=== PATIENT | male | born 1980 | race Caucasian/White ===

== ENCOUNTER 2019-05-18 22:27 | Observation (INO) | payer BC ==
[~2019-05-18] VITALS: Ht 185.4 cm; Wt 122.5 kg
[2019-05-18] MEDS ORDERED: GLUCAGON,HUMAN RECOMBINANT 1 MG/ML VIAL. IV ONE (23:30)
[2019-05-18] MEDS ORDERED: ONDANSETRON PF 4 MG/2 ML VIAL. IV ONE (23:30)
[2019-05-19] MEDS ORDERED: MORPHINE SULFATE 4 MG/ML VIAL. IV PRN (00:15)
--- NOTE | 2019-05-19 00:57 | PHYS DOC ---
Past Medical History Past Medical History: No Pertinent History Past Surgical History: Other Additional Past Surgical Histo: WISDOM TEETH Alcohol Use: Occasionally Drug Use: None Adult General Chief Complaint Chief Complaint: FOREIGN BODY HPI HPI Patient is a 39 year old male who ate beef brisket for lunch approximately 10 hours prior to arrival has had sensation of it being unable to pass CANT SWALLOW SALIVA no pain really. no abdo pian. has hx of gerd in the past. no other pmh no meds allergic to iodine Review of Systems Review of Systems Constitutional: Denies fever or chills [] Eyes: Denies change in visual acuity, redness, or eye pain [] HENT: Denies nasal congestion or sore throat [] Respiratory: Denies cough or shortness of breath [] Musculoskeletal: Denies back pain or joint pain [] Integument: Denies rash or skin lesions [] Neurologic: Denies headache, focal weakness or sensory changes [] Endocrine: Denies polyuria or polydipsia [] All other systems were reviewed and found to be within normal limits, except as documented in this note. Current Medications Current Medications Current Medications Medications (Trade) Dose Ordered Sig/Tommy Start Time Stop Time Status Last Admin Dose Admin Glucagon (Glucagen) 1 mg 1X ONCE 05/18/19 23:30 05/18/19 23:31 DC 05/18/19 23:28 1 MG Lorazepam (Ativan Inj) 1 mg 1X ONCE 05/18/19 23:30 05/18/19 23:31 DC 05/18/19 23:19 1 MG Morphine Sulfate (Morphine Sulfate) 4 mg PRN Q2HR PRN 05/19/19 00:15 05/20/19 00:14 Ondansetron HCl (Zofran) 4 mg 1X ONCE 05/18/19 23:30 05/18/19 23:31 DC 05/18/19 23:18 4 MG Sodium Chloride 1,000 ml @ 100 mls/hr Q10H 05/19/19 00:02 05/20/19 00:01 Allergies Allergies Allergies Coded Allergies Type Severity Reaction Last Updated Verified iodine Allergy Severe "I DONT KNOW THEY TOLD ME I DID WHEN I WAS LITTLE. " 05/18/19 Yes Physical Exam Physical Exam Constitutional: Well developed, well nourished, no acute distress, non-toxic ap pearance. [] HENT: Normocephalic, atraumatic, bilateral external ears normal, oropharynx moist, no oral exudates, nose normal. [] Eyes: PERRLA, EOMI, conjunctiva normal, no discharge. [] Neck: Normal range of motion, no tenderness, supple, no stridor. [] Pulmonary: Normal respiratory effort no increased work of breathing no obvious chest wall trauma Abdomen: Bowel sounds normal, soft, no tenderness, no masses, no pulsatile masses. [] Skin: Warm, dry, no erythema, no rash. [] Back: No tenderness, no CVA tenderness. [] Extremities: No tenderness, no cyanosis, no clubbing, ROM intact, no edema. [] Neurologic: Alert and oriented X 3, normal motor function, normal sensory function, no focal deficits noted. [] Psychologic: Affect normal, judgement normal, mood normal. [] Current Patient Data Vital Signs Vital Signs Date Time Temp Pulse Resp B/P (MAP) Pulse Ox O2 Delivery O2 Flow Rate FiO2 05/18/19 22:30 98.2 91 18 176/120 (138) 91 Room Air 98.2 EKG EKG [] Radiology/Procedures Radiology/Procedures [] Course & Med Decision Making Course & Med Decision Making Pertinent Labs and Imaging studies reviewed. (See chart for details) []In the ER we gave glucagon Ativan and Zofran, it didnt work I spoke with Dr. sal at 1230 am. given this has been going on since lunch, will admit first case for egd. [facility] Disclaimer Deann Disclaimer This electronic medical record was generated, in whole or in part, using a voice recognition dictation system. Departure Departure Impression: Primary Impression: Food impaction of esophagus Disposition: ADMITTED INPATIENT Admitting Physician: BRADEN Condition: STABLE Referrals: UNKNOWN PCP NAME (PCP) GUANACO MURCIA MD May 19, 2019 00:57
[2019-05-19 01:21] VITALS: BP 143/78
--- NOTE | 2019-05-19 01:41 | NUR ---
Patient admission Pt arrived to the unit at approximately 0120 via w/c from the ED. Pt's at bedside. Patient information guide packet was explained and given to pt. All questions and concerns regarding pt's POC was addressed and answered. Pt and verbalized understanding. Will continue to monitor pt closely.
[2019-05-19] MEDS ORDERED: No home medications (01:46)
[2019-05-19] MEDS: IV NORMAL SALINE 1000ML BAG 1,000 ML IV SCH ×2 (01:59→08:54)
[2019-05-19 03:00] VITALS: BP_SYST 126; BP_SYST 128; BP_DIAS 76; BP_DIAS 85
[2019-05-19] MEDS ORDERED: IV RINGERS,LACTATED 1000ML 1,000 ML IV SCH ×2 (07:21→07:45)
[2019-05-19] MEDS ORDERED: LIDOCAINE 2% PF 5 ML VIAL. ONE (07:30)
[2019-05-19] MEDS ORDERED: PROPOFOL 40 ML IV ONE (07:30)
--- NOTE | 2019-05-19 08:06 | PDOC2 ---
CONSULT Date of Consult Date of Consult DATE: 05/19/19 TIME: 07:58 Reason for Consult Reason for Consult: food impaction, history of dysphagia History of Present Illness Reason for Visit: 39 yo male with history for 1-2 years of intermittent solid food dysphagia, mostly with meats. In past, able to pass but yesterday, had meat for lunch- unable to pass- presented at midnight- did not respond to glucagon etc in ER and was admitted. He has history of heartburn for years but states when he stopped smoking, the heartburn seemed to go away. He does not take meds for heartburn regularly. He denies n/v, abd pain, change in bowels,fever, GI bleeding etc. During the night, noted to have intermittent low oxygen level- improved with O2. No history of sleep apnea but prior smoker Past Medical History GI: GERD Social History Quit Current Medications Current Medications Current Medications Glucagon (Glucagen) 1 mg 1X ONCE IV Last administered on 05/18/19at 23:28; Start 05/18/19 at 23:30; Stop 05/18/19 at 23:31; Status DC Lorazepam (Ativan Inj) 1 mg 1X ONCE IV Last administered on 05/18/19at 23:19; Start 05/18/19 at 23:30; Stop 05/18/19 at 23:31; Status DC Ondansetron HCl (Zofran) 4 mg 1X ONCE IV Last administered on 05/18/19at 23:18; Start 05/18/19 at 23:30; Stop 05/18/19 at 23:31; Status DC Morphine Sulfate (Morphine Sulfate) 4 mg PRN Q2HR PRN IV SEVERE PAIN 7-10; Start 05/19/19 at 00:15; Stop 05/20/19 at 00:14 Sodium Chloride 1,000 ml @ 100 mls/hr Q10H IV Last administered on 05/19/19at 01:59; Start 05/19/19 at 00:02; Stop 05/20/19 at 00:01 Ringer's Solution 1,000 ml @ 50 mls/hr Q20H IV Last administered on 05/19/19at 07:25; Start 05/19/19 at 07:21; Stop 05/19/19 at 19:20 Propofol 40 ml @ As Directed STK-MED ONCE IV ; Start 05/19/19 at 07:30; Stop 05/19/19 at 07:31; Status DC Lidocaine HCl (Lidocaine Pf 2% Vial) 5 ml STK-MED ONCE .ROUTE ; Start 05/19/19 at 07:30; Stop 05/19/19 at 07:31; Status DC Ringer's Solution 1,000 ml @ 100 mls/hr Q10H IV ; Start 05/19/19 at 07:45 Active Scripts Active Reported [No home medications] Allergies Allergies: Coded Allergies: iodine (Verified Allergy, Severe, "I DONT KNOW THEY TOLD ME I DID WHEN I WAS LITTLE. ", 05/18/19) ROS Gastrointestinal: Yes Other (dysphagia) Physical Exam General: Alert, Oriented X3 HEENT: Atraumatic, PERRLA Lungs: Clear to auscultation Heart: Regular rate, Normal S1, Normal S2, No murmurs Abdomen: Normal bowel sounds, Soft, No tenderness, No hepatosplenomegaly, No masses Extremities: No clubbing, No cyanosis Skin: No rashes Neuro: Normal gait Psych/Mental Status: Mental status NL Vitals VITALS Vital Signs Date Time Temp Pulse Resp B/P (MAP) Pulse Ox O2 Delivery O2 Flow Rate FiO2 05/19/19 07:55 Room Air 05/19/19 07:40 97.7 78 18 96 97.7 05/19/19 03:00 128/85 (99) Assessment/Plan Assessment/Plan Acute food bolus foreign body obstruction of esophagus- meat- with history of intermittent dysphagia in past as well. No prior EGD- but history of heartburn in past- seemed to go away after he stopped smoking Plan- EGD with foreign body removal today TEODORA KOTHARI MD May 19, 2019 08:06
--- NOTE | 2019-05-19 08:09 | PDOC4 ---
PROCEDURE Procedure EGD with foreign body removal and dilation food bolus obstruction anesthesia with propofol Findings: meat food bolus in distal esophagus- pushed into stomach (removed) noted distal esophageal benign stricture with esophagitis. passed 52 fr Clifton dilation Stomach- gastritis Duodenum- several small duodenal ulcers Plan- soft foods protonix 40 mg daily repeat EGD with bx and further dilation in 2 months needs to see PCP - noted low O2 level last night- no obstructive sleep apnea features noted during sedation TEODORA KOTHARI MD May 19, 2019 08:09
--- NOTE | 2019-05-19 09:40 | RAD ---
PROCEDURE: CHEST PA LATERAL CLINICAL INDICATION: Aspiration pneumonia. Low oxygen level. COMPARISON: None FINDINGS: No pneumothorax identified. Cardiac and mediastinal contours unremarkable. No pulmonary consolidation or acute airspace disease. No acute osseous abnormalities identified. IMPRESSION: No pulmonary consolidation or acute airspace disease. Electronically signed by: Alex Anderson DO (05/19/2019 9:37 AM) [facility]
--- NOTE | 2019-05-19 10:40 | PDOC1 ---
History and Physical Date of Admission Date of Admission DATE: 05/19/19 TIME: 10:39 Identification/Chief Complaint Chief Complaint SEEN IN ER , Patient is a 39 year old male who ate beef brisket for lunch approximately 10 hours prior to arrival has had sensation of it being unable to pass CANT SWALLOW SALIVA no pain really. no abdo pain. has hx of gerd in the past. no other pmh except obesity meat food bolus in distal esophagus- pushed into stomach (removed) noted distal esophageal benign stricture with esophagitis. passed 52 fr Clifton dilation Past Medical History Past Medical History Past Medical History Past Medical History Past Medical History: No Pertinent History Past Surgical History: Other Additional Past Surgical Histo: WISDOM TEETH Alcohol Use: Occasionally Drug Use: None fhx obesity GI: GERD Family History Family History: Hypertension Social History Smoke: <1 pack per day ALCOHOL: occassional Drugs: None Current Medications Current Medications Current Medications Glucagon (Glucagen) 1 mg 1X ONCE IV Last administered on 05/18/19at 23:28; Start 05/18/19 at 23:30; Stop 05/18/19 at 23:31; Status DC Lorazepam (Ativan Inj) 1 mg 1X ONCE IV Last administered on 05/18/19at 23:19; Start 05/18/19 at 23:30; Stop 05/18/19 at 23:31; Status DC Ondansetron HCl (Zofran) 4 mg 1X ONCE IV Last administered on 05/18/19at 23:18; Start 05/18/19 at 23:30; Stop 05/18/19 at 23:31; Status DC Morphine Sulfate (Morphine Sulfate) 4 mg PRN Q2HR PRN IV SEVERE PAIN 7-10; Start 05/19/19 at 00:15; Stop 05/20/19 at 00:14 Sodium Chloride 1,000 ml @ 100 mls/hr Q10H IV Last administered on 05/19/19at 01:59; Start 05/19/19 at 00:02; Stop 05/20/19 at 00:01 Ringer's Solution 1,000 ml @ 50 mls/hr Q20H IV Last administered on 05/19/19at 07:25; Start 05/19/19 at 07:21; Stop 05/19/19 at 08:50; Status DC Propofol 40 ml @ As Directed STK-MED ONCE IV ; Start 05/19/19 at 07:30; Stop 05/19/19 at 07:31; Status DC Lidocaine HCl (Lidocaine Pf 2% Vial) 5 ml STK-MED ONCE .ROUTE ; Start 05/19/19 at 07:30; Stop 05/19/19 at 07:31; Status DC Ringer's Solution 1,000 ml @ 100 mls/hr Q10H IV ; Start 05/19/19 at 07:45; S top 05/19/19 at 08:50; Status DC Active Scripts Active Reported [No home medications] Allergies Allergies: Coded Allergies: iodine (Verified Allergy, Severe, "I DONT KNOW THEY TOLD ME I DID WHEN I WAS LITTLE. ", 05/18/19) ROS Review of System Review of Systems Review of Systems Constitutional: Denies fever or chills [] Eyes: Denies change in visual acuity, redness, or eye pain [] HENT: Denies nasal congestion or sore throat [] Respiratory: Denies cough or shortness of breath [] Musculoskeletal: Denies back pain or joint pain [] Integument: Denies rash or skin lesions [] Neurologic: Denies headache, focal weakness or sensory changes [] Endocrine: Denies polyuria or polydipsia [] 14 pt systems were reviewed and found to be within normal limits, except as documented PSYCHOLOGICAL ROS: No: Anxiety, Behavioral Disorder, Concentration difficultie, Decreased libido, Depression, Disorientation, Hallucinations, Hostility, Irritablity, Memory difficulties, Mood Swings, Obsessive thoughts, Physical abuse, Sexual abuse, Sleep disturbances, Suicidal ideation, Other ALLERGY AND IMMUNOLOGY: No: Hives, Insect Bite Sensitivity, Itchy/Watery Eyes, Nasal Congestion, Post Nasal Drip, Seasonal Allergies, Other Hematological and Lymphatic: No: Bleeding Problems, Blood Clots, Blood Tr ansfusions, Brusing, Night Sweats, Pallor, Swollen Lymph Nodes, Other Respiratory: No: Cough, Hemoptysis, Orthopnea, Pleuritic Pain, Shortness of breath, SOB with excertion, Sputum Changes, Stridor, Tachypnea, Wheezing, Other Gastrointestinal: No Nausea, No Vomiting, No Abdominal Pain, No Diarrhea, No Constipation, No Melena, No Hematochezia, No Other Musculoskeletal: No Gait Disturbance, No Joint Pain, No Joint Stiffness, No Joint Swelling, No Muscle Pain, No Muscular Weakness, No Pain In:, No Swelling In:, No Other Physical Exam Physical Exam Physical Exam Physical Exam Constitutional: Well developed, well nourished, no acute distress, non-toxic appearance. [] HENT: Normocephalic, atraumatic, bilateral external ears normal, oropharynx moist, no oral exudates, nose normal. [] Eyes: PERRLA, EOMI, conjunctiva normal, no discharge. [] Neck: Normal range of motion, no tenderness, supple, no stridor. [] Pulmonary: Normal respiratory effort no increased work of breathing no obvious chest wall trauma Abdomen: Bowel sounds normal, soft, no tenderness, no masses, no pulsatile masses. [] Skin: Warm, dry, no erythema, no rash. [] Back: No tenderness, no CVA tenderness. [] Extremities: No tenderness, no cyanosis, no clubbing, ROM intact, no edema. [] Neurologic: Alert and oriented X 3, normal motor function, normal sensory function, no focal deficits noted. [] Psychologic: Affect normal, judgement normal, mood normal. [] General: Alert, Oriented X3, Cooperative, No acute distress HEENT: Atraumatic Lungs: Clear to auscultation Heart: S1S2, RRR Abdomen: Normal bowel sounds, Soft Rectal Exam: not examined PELVIC: Examination not indicated Extremities: No cyanosis, No edema, Normal pulses Neuro: Normal gait, Normal speech, Strength at 5/5 X4 ext, Normal tone, Sensation intact, Cranial nerves 3-12 NL Psych/Mental Status: Mental status NL, Mood NL Vitals Vitals Vital Signs Date Time Temp Pulse Resp B/P (MAP) Pulse Ox O2 Delivery O2 Flow Rate FiO2 05/19/19 08:25 97.6 82 18 147/89 93 Room Air 97.6 05/19/19 08:09 2 Images Images PROCEDURE: CHEST PA LATERAL CLINICAL INDICATION: Aspiration pneumonia. Low oxygen level. COMPARISON: None FINDINGS: No pneumothorax identified. Cardiac and mediastinal contours unremarkable. No pulmonary consolidation or acute airspace disease. No acute osseous abnormalities identified. IMPRESSION: No pulmonary consolidation or acute airspace disease. Electronically signed by: Alex Anderson DO (05/19/2019 9:37 AM) [facility] VTE Prophylaxis Ordered VTE Prophylaxis Devices: Yes VTE Pharmacological Prophylaxi: Yes Assessment/Plan Assessment/Plan impression EGD with foreign body removal and dilation food bolus obstruction anesthesia with propofol Findings: meat food bolus in distal esophagus- pushed into stomach (removed) noted distal esophageal benign stricture with esophagitis. passed 52 fr Clit[place] dilation Stomach- gastritis Duodenum- several small duodenal ulcers Plan- soft foods protonix 40 mg daily repeat EGD with bx and further dilation in 2 months see PCP - noted low O2 level last night- no obstructive sleep apnea features noted during sedation SHEY CARVAJAL MD May 19, 2019 10:40
[2019-05-19 11:00] VITALS: BP 123/84
--- NOTE | 2019-05-19 15:54 | PDOC3 ---
Discharge Summary Date of Admission: May 19, 2019 Date of Discharge: May 19, 2019 Follow-Up: 3-5 days Admitting Diagnosis comment: Identification/Chief Complaint Chief Complaint SEEN IN ER , Patient is a 39 year old male who ate beef brisket for lunch approximately 10 hours prior to arrival has had sensation of it being unable to pass CANT SWALLOW SALIVA no pain really. no abdo pain. has hx of gerd in the past. no other pmh except obesity meat food bolus in distal esophagus- pushed into stomach (removed) noted distal esophageal benign stricture with esophagitis. passed 52 fr Clifton dilation Past Medical History Past Medical History Past Medical History Past Medical History Past Medical History: No Pertinent History Past Surgical History: Other Additional Past Surgical Histo: WISDOM TEETH Alcohol Use: Occasionally Drug Use: None fhx obesity GI: GERD Family History Family History: Hypertension Social History Smoke: <1 pack per day ALCOHOL: occassional Drugs: None Current Medications Current Medications Current Medications Glucagon (Glucagen) 1 mg 1X ONCE IV Last administered on 05/18/19at 23:28; Start 05/18/19 at 23:30; Stop 05/18/19 at 23:31; Status DC Lorazepam (Ativan Inj) 1 mg 1X ONCE IV Last administered on 05/18/19at 23:19; Start 05/18/19 at 23:30; Stop 05/18/19 at 23:31; Status DC Ondansetron HCl (Zofran) 4 mg 1X ONCE IV Last administered on 05/18/19at 23:18; Start 05/18/19 at 23:30; Stop 05/18/19 at 23:31; Status DC Morphine Sulfate (Morphine Sulfate) 4 mg PRN Q2HR PRN IV SEVERE PAIN 7-10; Start 05/19/19 at 00:15; Stop 05/20/19 at 00:14 Sodium Chloride 1,000 ml @ 100 mls/hr Q10H IV Last administered on 05/19/19at 01:59; Start 05/19/19 at 00:02; Stop 05/20/19 at 00:01 Ringer's Solution 1,000 ml @ 50 mls/hr Q20H IV Last administered on 05/19/19at 07:25; Start 05/19/19 at 07:21; Stop 05/19/19 at 08:50; Status DC Propofol 40 ml @ As Directed STK-MED ONCE IV ; Start 05/19/19 at 07:30; Stop at 07:31; Status DC Lidocaine HCl (Lidocaine Pf 2% Vial) 5 ml STK-MED ONCE .ROUTE ; Start 05/19/19 at 07:30; Stop 05/19/19 at 07:31; Status DC Ringer's Solution 1,000 ml @ 100 mls/hr Q10H IV ; Start 05/19/19 at 07:45; Stop 05/19/19 at 08:50; Status DC Active Scripts Active Reported [No home medications] Allergies Allergies: Coded Allergies: iodine (Verified Allergy, Severe, "I DONT KNOW THEY TOLD ME I DID WHEN I WAS LITTLE. ", 05/18/19) ROS Review of System Review of Systems Review of Systems Constitutional: Denies fever or chills [] Eyes: Denies change in visual acuity, redness, or eye pain [] HENT: Denies nasal congestion or sore throat [] Respiratory: Denies cough or shortness of breath [] Musculoskeletal: Denies back pain or joint pain [] Integument: Denies rash or skin lesions [] Neurologic: Denies headache, focal weakness or sensory changes [] Endocrine: Denies polyuria or polydipsia [] 14 pt systems were reviewed and found to be within normal limits, except as documented PSYCHOLOGICAL ROS: No: Anxiety, Behavioral Disorder, Concentration difficultie, Decreased libido, Depression, Disorientation, Hallucinations, Hostility, Irritablity, Memory difficulties, Mood Swings, Obsessive thoughts, Physical abuse, Sexual abuse, Sleep disturbances, Suicidal ideation, Other ALLERGY AND IMMUNOLOGY: No: Hives, Insect Bite Sensitivity, Itchy/Watery Eyes, Nasal Congestion, Post Nasal Drip, Seasonal Allergies, Other Hematological and Lymphatic: No: Bleeding Problems, Blood Clots, Blood Transfusions, Brusing, Night Sweats, Pallor, Swollen Lymph Nodes, Other Respiratory: No: Cough, Hemoptysis, Orthopnea, Pleuritic Pain, Shortness of breath, SOB with excertion, Sputum Changes, Stridor, Tachypnea, Wheezing, Other Gastrointestinal: No Nausea, No Vomiting, No Abdominal Pain, No Diarrhea, No Constipation, No Melena, No Hematochezia, No Other Musculoskeletal: No Gait Disturbance, No Joint Pain, No Joint Stiffness, No Joint Swelling, No Muscle Pain, No Muscular Weakness, No Pain In:, No Swelling In:, No Other Physical Exam Physical Exam Physical Exam Physical Exam Constitutional: Well developed, well nourished, no acute distress, non-toxic appearance. [] HENT: Normocephalic, atraumatic, bilateral external ears normal, oropharynx moist, no oral exudates, nose normal. [] Eyes: PERRLA, EOMI, conjunctiva normal, no discharge. [] Neck: Normal range of motion, no tenderness, supple, no stridor. [] Pulmonary: Normal respiratory effort no increased work of breathing no obvious chest wall trauma Abdomen: Bowel sounds normal, soft, no tenderness, no masses, no pulsatile masses. [] Skin: Warm, dry, no erythema, no rash. [] Back: No tenderness, no CVA tenderness. [] Extremities: No tenderness, no cyanosis, no clubbing, ROM intact, no edema. [] Neurologic: Alert and oriented X 3, normal motor function, normal sensory function, no focal deficits noted. [] Psychologic: Affect normal, judgement normal, mood normal. [] General: Alert, Oriented X3, Cooperative, No acute distress HEENT: Atraumatic Lungs: Clear to auscultation Heart: S1S2, RRR Abdomen: Normal bowel sounds, Soft Rectal Exam: not examined PELVIC: Examination not indicated Extremities: No cyanosis, No edema, Normal pulses Neuro: Normal gait, Normal speech, Strength at 5/5 X4 ext, Normal tone, Sensation intact, Cranial nerves 3-12 NL Psych/Mental Status: Mental status NL, Mood NL Vitals Vitals Vital Signs Date Time Temp Pulse Resp B/P (MAP) Pulse Ox O2 Delivery O2 Flow Rate FiO2 05/19/19 08:25 97.6 82 18 147/89 93 Room Air 97.6 05/19/19 08:09 2 Images Images PROCEDURE: CHEST PA LATERAL CLINICAL INDICATION: Aspiration pneumonia. Low oxygen level. COMPARISON: None FINDINGS: No pneumothorax identified. Cardiac and mediastinal contours unremarkable. No pulmonary consolidation or acute airspace disease. No acute osseous abnormalities identified. IMPRESSION: No pulmonary consolidation or acute airspace disease. Electronically signed by: Alex Anderson DO (05/19/2019 9:37 AM) [facility] VTE Prophylaxis Ordered VTE Prophylaxis Devices: Yes VTE Pharmacological Prophylaxi: Yes DISCHARGE DX Assessment/Plan impression EGD with foreign body removal and dilation food bolus obstruction anesthesia with propofol Findings: meat food bolus in distal esophagus- pushed into stomach (removed) noted distal esophageal benign stricture with esophagitis. passed 52 fr Clif[place] dilation Stomach- gastritis Duodenum- several small duodenal ulcers Plan- soft foods protonix 40 mg daily repeat EGD with bx and further dilation in 2 months see PCP - noted low O2 level last night- no obstructive sleep apnea features noted during sedation D/C PLANNING 34 MIN, TOTAL TIME 57 MIN Brief Hospital Course Mr. Monterroso is a 39 old [sex] who presented with [ESOPHAGEAL STRICTURE ] CONDITION AT DISCHARGE: Improved Discharge Medications Current Medications Glucagon (Glucagen) 1 mg 1X ONCE IV Last administered on 05/18/19at 23:28; Start 05/18/19 at 23:30; Stop 05/18/19 at 23:31; Status DC Lorazepam (Ativan Inj) 1 mg 1X ONCE IV Last administered on 05/18/19at 23:19; Start 05/18/19 at 23:30; Stop 05/18/19 at 23:31; Status DC Ondansetron HCl (Zofran) 4 mg 1X ONCE IV Last administered on 05/18/19at 23:18; Start 05/18/19 at 23:30; Stop 05/18/19 at 23:31; Status DC Morphine Sulfate (Morphine Sulfate) 4 mg PRN Q2HR PRN IV SEVERE PAIN 7-10; Start 05/19/19 at 00:15; Stop 05/20/19 at 00:14 Sodium Chloride 1,000 ml @ 100 mls/hr Q10H IV Last administered on 05/19/19at 01:59; Start 05/19/19 at 00:02; Stop 05/20/19 at 00:01 Ringer's Solution 1,000 ml @ 50 mls/hr Q20H IV Last administered on 05/19/19at 07:25; Start 05/19/19 at 07:21; Stop 05/19/19 at 08:50; Status DC Propofol 40 ml @ As Directed STK-MED ONCE IV ; Start 05/19/19 at 07:30; Stop 05/19/19 at 07:31; Status DC Lidocaine HCl (Lidocaine Pf 2% Vial) 5 ml STK-MED ONCE .ROUTE ; Start 05/19/19 at 07:30; Stop 05/19/19 at 07:31; Status DC Ringer's Solution 1,000 ml @ 100 mls/hr Q10H IV ; Start 05/19/19 at 07:45; Stop 05/19/19 at 08:50; Status DC Active Scripts Active Reported [No home medications] Vital Signs Vital Signs Date Time Temp Pulse Resp B/P (MAP) Pulse Ox O2 Delivery O2 Flow Rate FiO2 05/19/19 11:00 97.7 75 18 123/84 (97) 94 Room Air 97.7 05/19/19 08:09 2 Allergies Allergies Coded Allergies Type Severity Reaction Last Updated Verified iodine Allergy Severe "I DONT KNOW THEY TOLD ME I DID WHEN I WAS LITTLE. " 05/18/19 Yes Disposition/Orders: D/C to Home Patient Instructions D/C PLANNING 57 MIN SHEY CARVAJAL MD May 19, 2019 15:54
[2019-05-19] MEDS ORDERED: PANT20TA2 PO (16:06)
[2019-05-19 16:12] VITALS: BP 125/88
--- NOTE | 2019-05-19 16:15 | NUR ---
Discharge Note: ALIZA HALLMAN PRIDDY Discharge instructions and discharge home medications reviewed with Patient and a copy given. All questions have been answered and understanding verbalized. The following instructions and handouts were given: information about follow up appointments, diet, etc. Discontinued lines and drains: IV line in right AC removed, catheter tip intact. Patient discharged to home with self care with , patient ambulated to discharge vehicle.
--- NOTE | 2019-05-22 15:06 | PATHOLOGY ---
[facility] Accession Number: [id number] . 01 Material submitted: . stomach - ANTRUM BX . 01 Clinical history: . Food impaction Gastritis . 02 Diagnosis: Gastric biopsies, antrum: - Mild chronic gastritis. (JPM:jamila; 05/22/2019) QMS/05/22/2019 . 02 Comment: Sections of the gastric biopsy reveal segments of gastric antral/body transition mucosa showing congestion and very mild chronic inflammation. A properly controlled immunoperoxidase stain for Helicobacter is negative for Helicobacter organisms. (JPM:jamila; 05/22/2019) . . . Special stain performed: Immunoperoxidase stain for Helicobacter. . 02 Electronically signed: . Justus Celis MD, Pathologist NPI- [id number] . 01 Gross description: . The specimen is received in formalin, labeled "Simone Monterroso, antrum BX" and consists of 2 fragments of pink-cavazos tissue measuring 0.4 x 0.3 cm and 0.7 x 0.2 cm which are entirely submitted in A1. (SDY; 05/21/2019) SYU/SYU . 02 Pathologist provided ICD-10: K29.50 . 02 CPT . 240568, [id number] Specimen Comment: A courtesy copy of this report has been sent to Specimen Comment: [phone], . Specimen Comment: Report sent to / DR HAMM Performed at: 01 [facility] [address], [place] [id number] MD Roman Sheets MD Phone: [phone] Performed at: 02 [facility] [address] [place], [place] [id number] MD Justus Celis MD Phone: [phone]
== END 2019-05-19 16:15 | disposition home or self-care (01) ==
LOC: ER 22:27 → 4 NORTH 05-19 00:41
PROVIDERS: ADMIT Internal Medicine; ATTEND Internal Medicine
DX: T18.128A Food in esophagus causing other injury, initial encounter (principal); Z91.041 Radiographic dye allergy status; Z82.49 Family history of ischemic heart disease and other diseases of the circulatory system; Z79.899 Other long term (current) drug therapy; F17.210 Nicotine dependence, cigarettes, uncomplicated; K21.0 Gastro-esophageal reflux disease with esophagitis; E66.9 Obesity, unspecified
CPT/HCPCS: 43239; 43450; 71046; 88305; 88342; 96374; 96375; 99284; G0378; J1610; J2001; J2060; J2405; J2704; J7030; J7120; G0379